=== PATIENT | male | born 1950 | race Caucasian/White ===

== ENCOUNTER 2023-05-02 11:30 | Inpatient (IN) | payer OTHER, MEDICAID ==
[~2023-05-02] VITALS: Ht 165.1 cm; Wt 67.2 kg
[2023-05-02 11:45] VITALS: BP_SYST 181; PULSE 51; RESP 20; TEMP 97.9; O2SAT 100
[2023-05-02] MEDS ORDERED: ASPIRIN 81 MG TABLET(ECOTRIN) ONE (12:19)
[2023-05-02 12:30] LABS: BASOPHILS % (AUTO) 0.7 % (0.0-2.0); EOSINOPHILS # (AUTO) 0.2 K/uL (0.0-0.4); EOSINOPHILS % (AUTO) 2.9 % (0.0-4.0); HEMATOCRIT 42.1 % (36-54); LYMPHOCYTES # (AUTO) 2.6 K/uL (1.0-5.5); LYMPHOCYTES % (AUTO) 34.9 % (20.5-51.5); MEAN CORPUSCULAR HEMOGLOBIN 32 pg (27-31); MEAN CORPUSCULAR HGB CONC 33 % (32-36); MEAN CORPUSCULAR VOLUME 96 fL (79.0-98.0); MONOCYTES # (AUTO) 0.7 K/uL (0.0-1.0); MONOCYTES % (AUTO) 9.8 % (1.7-9.3); NEUTROPHILS # (AUTO) 3.8 K/uL (1.8-7.7); NEUTROPHILS % (AUTO) 51.7 % (40.0-70.0); PLATELET COUNT (AUTO) 246 K/uL (130-430); RED BLOOD CELL COUNT(AUTO) 4.38 MIL/uL (4.2-6.2); RED CELL DISTRIBUTION WIDTH 13.4 % (9.0-15.0); WHITE BLOOD COUNT (AUTO) 7.3 K/uL (4.8-10.8)
[2023-05-02] MEDS ORDERED: ASPIRIN 81 MG TAB.CHEW PO ONE (12:30)
[2023-05-02 13:12] LABS: ANION GAP 11 (5-15); CALCIUM 8.7 mg/dL (8.4-11.0); CARBON DIOXIDE 27 mmol/L (23-29); CHLORIDE 101 mmol/L (98-107); CREATININE 0.95 mg/dL (0.55-1.30); GLUCOSE 106 mg/dL (74-106); POTASSIUM 3.5 mmol/L (3.5-5.1); SODIUM SERUM 139 mmol/L (136-145); UREA NITROGEN, BLOOD 10 mg/dL (8-21)
[2023-05-02 13:18] LABS: ALANINE AMINOTRANSFERASE 17 U/L (12-78); ALBUMIN 3.6 g/dL (3.4-4.8); ASPARTATE AMINOTRANSFERASE 19 U/L (10-37); TOTAL BILIRUBIN 0.4 mg/dL (0.0-1.0); TOTAL PROTEIN, SERUM 7.5 g/dL (6.4-8.3)
[2023-05-02] MEDS ORDERED: BENA1TAB71 PO (19:07)
[2023-05-02] MEDS ORDERED: ATEN-41 PO (19:07)
[2023-05-02] MEDS ORDERED: ATOR40TA68 PO (19:07)
[2023-05-02] MEDS ORDERED: ASPI-1393 PO (19:07)
[2023-05-02] MEDS ORDERED: TAMS-11 PO (19:07)
[2023-05-02 22:24] VITALS: BP_SYST 153; PULSE 54; RESP 16; TEMP 98.1
[2023-05-02 23:28] VITALS: O2SAT 99
[2023-05-02] MEDS ORDERED: BENAZEPRIL HCL Non-Formulary 10 MG TABLET PO SCH (23:30)
[2023-05-02] MEDS ORDERED: ATORVASTATIN 20 MG TABLET PO SCH (23:30)
[2023-05-03] MEDS ORDERED: NALOXONE HCL 0.4 MG/ML AMP (NARCAN) IVP PRN ×2 (00:15)
[2023-05-03] MEDS ORDERED: ONDANSETRON HCL 4 MG/2 ML VIAL IVP PRN (00:15)
[2023-05-03] MEDS ORDERED: HYDROcodone/ACETAMIN 5-325 MG TAB (NORCO/ VICODIN) PO PRN (00:15)
[2023-05-03] MEDS ORDERED: HYDROcodone/ACETAMIN 10-325 MG TAB PO PRN (00:15)
[2023-05-03] MEDS ORDERED: ACETAMINOPHEN 325 MG TABLET PO PRN (00:15)
[2023-05-03] MEDS ORDERED: LORazepam 2 MG/ML VIAL IVP PRN (00:15)
[2023-05-03 03:00] VITALS: BP_SYST 114; PULSE 48; RESP 16; TEMP 97.2; O2SAT 99
[2023-05-03] MEDS: NORMAL SALINE 5 ML DISP.SYRIN IVF SCH ×2 (06:29→15:18)
[2023-05-03 07:26] LABS: ALANINE AMINOTRANSFERASE 23 U/L (12-78); ALBUMIN 3.5 g/dL (3.4-4.8); ANION GAP 10 (5-15); ASPARTATE AMINOTRANSFERASE 19 U/L (10-37); CALCIUM 8.7 mg/dL (8.4-11.0); CARBON DIOXIDE 26 mmol/L (23-29); CHLORIDE 105 mmol/L (98-107); CREATININE 0.81 mg/dL (0.55-1.30); GLUCOSE 92 mg/dL (74-106); PHOSPHORUS 4.1 mg/dL (2.7-4.5); POTASSIUM 4.3 mmol/L (3.5-5.1); SODIUM SERUM 141 mmol/L (136-145); TOTAL BILIRUBIN 0.6 mg/dL (0.0-1.0); TOTAL PROTEIN, SERUM 7.4 g/dL (6.4-8.3); UREA NITROGEN, BLOOD 9 mg/dL (8-21)
[2023-05-03 07:31] LABS: BASOPHILS # (AUTO) 0.1 K/uL (0.0-0.2); BASOPHILS % (AUTO) 0.9 % (0.0-2.0); EOSINOPHILS # (AUTO) 0.2 K/uL (0.0-0.4); HEMATOCRIT 44.3 % (36-54); HEMOGLOBIN 14.5 g/dL (14.0-18.0); LYMPHOCYTES # (AUTO) 2.6 K/uL (1.0-5.5); LYMPHOCYTES % (AUTO) 37.7 % (20.5-51.5); MEAN CORPUSCULAR HEMOGLOBIN 32 pg (27-31); MEAN CORPUSCULAR HGB CONC 33 % (32-36); MEAN CORPUSCULAR VOLUME 96 fL (79.0-98.0); MONOCYTES # (AUTO) 0.5 K/uL (0.0-1.0); MONOCYTES % (AUTO) 7.1 % (1.7-9.3); NEUTROPHILS # (AUTO) 3.5 K/uL (1.8-7.7); NEUTROPHILS % (AUTO) 51.3 % (40.0-70.0); PLATELET COUNT (AUTO) 247 K/uL (130-430); RED CELL DISTRIBUTION WIDTH 13.7 % (9.0-15.0); WHITE BLOOD COUNT (AUTO) 6.9 K/uL (4.8-10.8)
[2023-05-03 08:00] VITALS: BP_SYST 127; PULSE 57; RESP 16; TEMP 98.1; O2SAT 95; O2SAT 98
[2023-05-03] MEDS ORDERED: TAMSULOSIN HCL 0.4 MG CAP PO SCH (09:00)
[2023-05-03] MEDS ORDERED: ATENOLOL 25 MG TABLET(TENORMIN) PO SCH (09:00)
[2023-05-03 12:24] VITALS: BP_SYST 128; PULSE 57; RESP 16; TEMP 98.2; O2SAT 98
[2023-05-03 15:57] VITALS: BP_SYST 126; PULSE 63; RESP 18; TEMP 97; O2SAT 98
[2023-05-03] MEDS ORDERED: BENAZEPRIL HCL Non-Formulary 10 MG TABLET PO SCH (21:00)
[2023-05-03] MEDS ORDERED: lisinopriL 5 MG TABLET PO SCH (21:00)
[2023-05-03] MEDS ORDERED: ASPIRIN 81 MG TABLET(ECOTRIN) PO SCH (21:00)
[2023-05-03] MEDS ORDERED: ATORVASTATIN 20 MG TABLET PO SCH (21:00)
[2023-05-04] MEDS ORDERED: BENAZEPRIL HCL Non-Formulary 10 MG TABLET PO SCH (21:00)
== END 2023-05-03 20:10 | disposition home health service (06) | DRG 305 ==
LOC: SED 11:30 → UNDOADMIN 13:31 → SIC 13:31 → STU 17:54
PROVIDERS: ADMIT Preventive Medicine Preventive Medicine/Occupational Environmental Medicine; ATTEND Preventive Medicine Preventive Medicine/Occupational Environmental Medicine
DX: I16.0 Hypertensive urgency (principal); I10 Essential (primary) hypertension
CPT/HCPCS: 36415; 71045; 80053; 83735; 83880; 84100; 84484; 85025; 93005; 93306; 93880; 99285; G0378